=== PATIENT | female | born 1990 | race Caucasian/White ===

== ENCOUNTER 2016-06-03 20:19 | Emergency (ER) | payer OTHER ==
--- NOTE | 2016-06-03 21:43 | ED CLINICAL REPORT ---
Clinical Report - Physicians/Mid Levels [facility] [address] [place] [address] 06/03/2016 20:19 [id number] Time Seen: 21:08. Arrived- By private vehicle. Historian- patient. HISTORY OF PRESENT ILLNESS Chief Complaint: Breast lump. This started about 1 month ago and is still present. It has been constant. (patient noticed discomfort in her chest on the left side for the past month. She says it's worse when she takes deep breaths. She feels that it is within her beneath her left breast. When she wasevaluating that she noticed a lump in the lower part of her left breast that she says is slightly tender and she's come in and have this evaluated. She denies any change in the overlying skin of her breasts, no discharge from the nipple,.). REVIEW OF SYSTEMS No chills, fever, sweats, calf pain or cough. No difficulty breathing, pedal edema, palpitations, abdominal pain or constipation. No diarrhea, nausea, vomiting or urinary problems. All systems otherwise negative, except as recorded above. PAST HISTORY Problems: MRSA Infection. Abscess. Uterine Fibroid. Pelvic Pain. Additional Surgeries: Adenoidectomy. Fibroid tumors laparoscopy. Tonsillectomy. Medications: None. Allergies: No Known Drug Allergy. 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 FAMILY HISTORY Denies family medical history. ADDITIONAL NOTES The nursing notes have been reviewed. PHYSICAL EXAM Vital Signs: Have been reviewed. Appearance: Alert. Eyes: Pupils equal, round and reactive to light. ENT: Pharynx normal. Neck: Neck supple. CVS: Normal heart rate and rhythm. Heart sounds normal. Respiratory: No respiratory distress. Moderate left costochondral tenderness. The tenderness reproduces the patient's subjective complaint. Breath sounds normal. Left Breast: Single, medium, nodular, nontender, moveable mass present on exam. Localized at 6 o'clock. No axillary involvement, erythema present, warmth present or lymphangitis present. Normal nipple. No ecchymosis. No nipple discharge or areola abnormality. Breast Exam: a female mri supervisor was present. Abdomen: No visible injury. Soft and nontender. Bowel sounds normal. No organomegaly. No mass. Back: Normal inspection. Skin: Skin warm and dry. Normal skin color. Normal skin turgor. Extremities: Extremities exhibit normal ROM. No lower extremity edema. CLINICAL IMPRESSION Left breast mass. Costochondritis INSTRUCTIONS Warnings: Further evaluation is necessary. GENERAL WARNINGS: Return or contact your physician immediately if your condition worsens or changes unexpectedly, if not improving as expected, or if other problems arise. OTC Medications: Motrin (available over the counter): take according to label instructions. Follow-up: Follow up with your doctor in seven days. Understanding of the discharge instructions verbalized by patient. (Electronically signed by Jose J Morales MD 06/03/2016 22:47)
--- NOTE | 2016-06-03 21:43 | ED NURSING NOTES ---
Clinical Report - Nurses [facility] [address] [place] [address] 06/03/2016 20:19 Patient: XIMENA ALCOCER TRIAGE Triage time 20:36. Acuity: LEVEL 4. Chief Complaint: SWOLLEN NODE (Ximena states her L breast has been hurting for about 4 weeks. Tonight she noticed a lump underneath her breath. Paternal grandmother is in remission for breast cancer. She describes lump as painful. She states she experienced pain in her L breast 4 weeks ago while she was in shelter; she was also detoxing at the time so was not sure if it was part of detoxing or something else.). Alert. No acute distress. SEPSIS SCREEN: Sepsis Screen: negative. Negative (no infection suspected/documented). --20:45 Sanjay Shaw R.N. 20:36 06/03/16. BP: 155/108 (regular adult cuff) taken on the left arm, via an automated monitor, while sitting. HR: 116 (tachycardic). RR: 16 (regular, unlabored and normal). O2 saturation: 100% on room air. Temp: 98.5 F (oral). Pain level now: 410. --20:45 Sanjay Shaw R.N. Weight: 72.5 kg stated. Height/Length: 64 inches Per Patient. BMI: 27.5. --20:42 Sanjay Shaw R.N. Medications None. --20:41 Sanjay Shaw R.N. Medication/allergy information source: the patient. --20:45 Sanjay Shaw R.N. Allergies No Known Drug Allergy. --20:41 Sanjay Shaw R.N. History Arrived by private vehicle. Historian: patient. Accompanied by family. Primary physician ([facility]). This started just prior to arrival. Treatment C APPLICATION DEVELOPER: None. PAST MEDICAL HX: Last normal menstrual period- about 1.5 weeks ago. SOCIAL HX: Current every day light tobacco smoker (cigarette)- less than 1/2 a pack per day. History of drug use. Is a recovering addict. (about 4 weeks sober). No alcohol use. She has not traveled outside the [place] The patient was exposed to MRSA. ABUSE ASSESSMENT: Abuse assessment: The patient was asked "Do you feel safe in your home?" and "Has anyone hurt you or threatened to hurt you?". No report of abuse. SELF HARM ASSESSMENT: A self harm assessment was performed. The patient answered "no" to the question "Do you have thoughts of harming or killing yourself?" and "Have you recently had thoughts about harming or killing others?". FALL RISK ASSESSMENT: Fall risk assessment completed. No fall risk identified. NUTRITIONAL RISK ASSESSMENT: The nutritional risk assessment revealed no deficiencies. FUNCTIONAL ASSESSMENT: Functional assessment: no impairments noted. LEARNING NEEDS ASSESSMENT: The learning needs assessment revealed no barriers. SKIN INTEGRITY ASSESSMENT: Skin integrity risk assessment completed. No skin integrity risk identified. --20:45 Sanajy Shaw R.N. ADDITIONAL SURGERIES: Adenoidectomy. Fibroid tumors laparoscopy. Tonsillectomy. --20:41 Sanjay Shaw R.N. Assessment GENERAL / NEURO / PSYCH: Alert. Oriented X 4. Appears in no acute distress. Patient appears calm and cooperative. RESPIRATORY: Respirations not labored. SKIN: Skin is warm and dry. --20:45 Sanjay Shaw R.N. Interventions ID band on patient. To treatment room. Report given to the primary nurse. TJ Gage. No allergy band on patient. --20:45 Sanjay Shaw R.N. NURSING PROGRESS NOTES The initial plan of care for this patient has been created This plan of care was discussed with the patient. Patient gowned. Reassurance given to the patient. Two patient identifiers checked. Call light placed in reach. Side rails up x 1. Bed placed in lowest position. Brakes of bed on. Patient ready for evaluation- ED physician notified. --20:45 Sanjay Shaw R.N. 20:46 06/03/16. BP: 151/92 (regular adult cuff) taken on the left arm, via an automated monitor, while sitting. --20:47 DeElena, Sanjay, R.N. DISPOSITION / DISCHARGE Departure time: 2149. Condition at departure: improved. No learning barriers present. Discharge instructions provided and reviewed with the patient. Reviewed warnings. Reviewed medication(s). Treatments reviewed. Patient verbalized understanding. Written instructions provided in Croatian. The patient was discharged by the physician. She was discharged home and accompanied by family. She left the Emergency Department ambulatory and via private vehicle. Family member driving. --21:53 Too Ren R.N. 21:51 06/03/16. BP: 136/98. HR: 76. RR: 18. O2 saturation: 100%. Pain level now 0/10. --21:53 Too Ren R.N. Locked/Released at 06/05/2016 21:00 by Too Ren R.N.
--- NOTE | 2016-06-03 21:43 | ED NURSING NOTES ---
Clinical Report - Nurses [facility] [address] [place] [address] 06/03/2016 20:19 Patient: XIMENA ALCOCER TRIAGE Triage time 20:36. Acuity: LEVEL 4. Chief Complaint: SWOLLEN NODE (Ximena states her L breast has been hurting for about 4 weeks. Tonight she noticed a lump underneath her breath. Paternal grandmother is in remission for breast cancer. She describes lump as painful. She states she experienced pain in her L breast 4 weeks ago while she was in nursing home; she was also detoxing at the time so was not sure if it was part of detoxing or something else.). Alert. No acute distress. SEPSIS SCREEN: Sepsis Screen: negative. Negative (no infection suspected/documented). --20:45 Sanjay Shaw R.N. 20:36 06/03/16. BP: 155/108 (regular adult cuff) taken on the left arm, via an automated monitor, while sitting. HR: 116 (tachycardic). RR: 16 (regular, unlabored and normal). O2 saturation: 100% on room air. Temp: 98.5 F (oral). Pain level now: 410. --20:45 Sanjay Shaw R.N. Weight: 72.5 kg stated. Height/Length: 64 inches Per Patient. BMI: 27.5. --20:42 Sanjay Shaw R.N. Medications None. --20:41 Sanjay Shaw R.N. Medication/allergy information source: the patient. --20:45 Sanjay Shaw R.N. Allergies No Known Drug Allergy. --20:41 Sanjay Shaw R.N. History Arrived by private vehicle. Historian: patient. Accompanied by family. Primary physician ([facility]). This started just prior to arrival. Treatment CLINICAL TRIAL EDUCATOR: None. PAST MEDICAL HX: Last normal menstrual period- about 1.5 weeks ago. SOCIAL HX: Current every day light tobacco smoker (cigarette)- less than 1/2 a pack per day. History of drug use. Is a recovering addict. (about 4 weeks sober). No alcohol use. She has not traveled outside the [place] The patient was exposed to MRSA. ABUSE ASSESSMENT: Abuse assessment: The patient was asked "Do you feel safe in your home?" and "Has anyone hurt you or threatened to hurt you?". No report of abuse. SELF HARM ASSESSMENT: A self harm assessment was performed. The patient answered "no" to the question "Do you have thoughts of harming or killing yourself?" and "Have you recently had thoughts about harming or killing others?". FALL RISK ASSESSMENT: Fall risk assessment completed. No fall risk identified. NUTRITIONAL RISK ASSESSMENT: The nutritional risk assessment revealed no deficiencies. FUNCTIONAL ASSESSMENT: Functional assessment: no impairments noted. LEARNING NEEDS ASSESSMENT: The learning needs assessment revealed no barriers. SKIN INTEGRITY ASSESSMENT: Skin integrity risk assessment completed. No skin integrity risk identified. --20:45 Sanjay Shaw R.N. ADDITIONAL SURGERIES: Adenoidectomy. Fibroid tumors laparoscopy. Tonsillectomy. --20:41 Sanjay Shaw R.N. Assessment GENERAL / NEURO / PSYCH: Alert. Oriented X 4. Appears in no acute distress. Patient appears calm and cooperative. RESPIRATORY: Respirations not labored. SKIN: Skin is warm and dry. --20:45 Sanjay Shaw R.N. Interventions ID band on patient. To treatment room. Report given to the primary nurse. TJ Gage. No allergy band on patient. --20:45 Sanjay Shaw R.N. NURSING PROGRESS NOTES The initial plan of care for this patient has been created This plan of care was discussed with the patient. Patient gowned. Reassurance given to the patient. Two patient identifiers checked. Call light placed in reach. Side rails up x 1. Bed placed in lowest position. Brakes of bed on. Patient ready for evaluation- ED physician notified. --20:45 Sanjay Shaw R.N. 20:46 06/03/16. BP: 151/92 (regular adult cuff) taken on the left arm, via an automated monitor, while sitting. --20:47 DeElena, Sanjay, R.N. DISPOSITION / DISCHARGE Departure time: 2149. Condition at departure: improved. No learning barriers present. Discharge instructions provided and reviewed with the patient. Reviewed warnings. Reviewed medication(s). Treatments reviewed. Patient verbalized understanding. Written instructions provided in Greek. The patient was discharged by the physician. She was discharged home and accompanied by family. She left the Emergency Department ambulatory and via private vehicle. Family member driving. --21:53 Too Ren R.N. 21:51 06/03/16. BP: 136/98. HR: 76. RR: 18. O2 saturation: 100%. Pain level now 0/10. --21:53 Too Ren R.N. Locked/Released at 06/05/2016 21:00 by Too Ren R.N.
--- NOTE | 2016-06-03 21:43 | ED CLINICAL REPORT ---
Clinical Report - Physicians/Mid Levels [facility] [address] [place] [address] 06/03/2016 20:19 [id number] Time Seen: 21:08. Arrived- By private vehicle. Historian- patient. HISTORY OF PRESENT ILLNESS Chief Complaint: Breast lump. This started about 1 month ago and is still present. It has been constant. (patient noticed discomfort in her chest on the left side for the past month. She says it's worse when she takes deep breaths. She feels that it is within her beneath her left breast. When she wasevaluating that she noticed a lump in the lower part of her left breast that she says is slightly tender and she's come in and have this evaluated. She denies any change in the overlying skin of her breasts, no discharge from the nipple,.). REVIEW OF SYSTEMS No chills, fever, sweats, calf pain or cough. No difficulty breathing, pedal edema, palpitations, abdominal pain or constipation. No diarrhea, nausea, vomiting or urinary problems. All systems otherwise negative, except as recorded above. PAST HISTORY Problems: MRSA Infection. Abscess. Uterine Fibroid. Pelvic Pain. Additional Surgeries: Adenoidectomy. Fibroid tumors laparoscopy. Tonsillectomy. Medications: None. Allergies: No Known Drug Allergy. 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 FAMILY HISTORY Denies family medical history. ADDITIONAL NOTES The nursing notes have been reviewed. PHYSICAL EXAM Vital Signs: Have been reviewed. Appearance: Alert. Eyes: Pupils equal, round and reactive to light. ENT: Pharynx normal. Neck: Neck supple. CVS: Normal heart rate and rhythm. Heart sounds normal. Respiratory: No respiratory distress. Moderate left costochondral tenderness. The tenderness reproduces the patient's subjective complaint. Breath sounds normal. Left Breast: Single, medium, nodular, nontender, moveable mass present on exam. Localized at 6 o'clock. No axillary involvement, erythema present, warmth present or lymphangitis present. Normal nipple. No ecchymosis. No nipple discharge or areola abnormality. Breast Exam: a female patrol officer was present. Abdomen: No visible injury. Soft and nontender. Bowel sounds normal. No organomegaly. No mass. Back: Normal inspection. Skin: Skin warm and dry. Normal skin color. Normal skin turgor. Extremities: Extremities exhibit normal ROM. No lower extremity edema. CLINICAL IMPRESSION Left breast mass. Costochondritis INSTRUCTIONS Warnings: Further evaluation is necessary. GENERAL WARNINGS: Return or contact your physician immediately if your condition worsens or changes unexpectedly, if not improving as expected, or if other problems arise. OTC Medications: Motrin (available over the counter): take according to label instructions. Follow-up: Follow up with your doctor in seven days. Understanding of the discharge instructions verbalized by patient. (Electronically signed by Jose J Morales MD 06/03/2016 22:47)
--- NOTE | 2016-06-05 21:00 | ED MAR SUMMARY ---
..... Medication Administration Record [facility] [address], [place] [id number] Patient: XIMENA ALCOCER Visit ID: [id number] 26y, F Weight: 72.5 kg Height/Length: 64 in BMI: 27.5 ALLERGIES: No Known Drug Allergy
--- NOTE | 2016-06-05 21:00 | ED DISCHARGE INSTRUCTIONS ---
Patient: XIMENA ALCOCER General Instructions [facility] VisitID: [id number] [place] [address] 26y, F Registration Date/Time: 06/03/2016 Left breast mass. Costochondritis INSTRUCTIONS Warnings: Further evaluation is necessary. GENERAL WARNINGS: Return or contact your physician immediately if your condition worsens or changes unexpectedly, if not improving as expected, or if other problems arise. OTC Medications: Motrin (available over the counter): take according to label instructions. Follow-up: Follow up with your doctor in seven days. Understanding of the discharge instructions verbalized by patient. ADDITIONAL INFORMATION Breast Lump A lump was found in your breast today. Most breast lumps are not cancer. They represent normal changes in the breast tissue due to hormone variations. Some women may form lumps that are painful and tender; other lumps are painless. A common cause for a benign breast lump is Fibrocystic Breast Disease. In this condition, small cysts form and increase then decrease in size with your menstrual cycle. It is not possible to be certain of the cause of your lump without further evaluation. This could include another exam by your doctor or a heavy equipment supervisor, a mammogram, an ultrasound or possibly a biopsy. Home Care: If you are having breast pain, wear a well-fitted bra or sports bra for extra support. If you have breast pain at night, try wearing the bra during sleep. Applying a warm compress (towel soaked in warm water) may give temporary pain relief. Keep a log of whether the lump seems to be changing in size or tenderness with your period. This can help your doctor make the correct diagnosis. If your doctor suspects you have fibrocystic breast disease, try the following for the next three months: Reduce caffeine intake. Many women find that this helps. Caffeine is found in coffee, sodas, teas and chocolates. Take Vitamin E capsules (not more than 600mg per day). Follow Up with your doctor or as advised by our staff. Try to schedule the appointment for another breast exam 7-10 days after the start of your next period. Get Prompt Medical Attention if any of the following occur: Discharge from your nipple Redness or swelling of the breast Visible changes in the skin of the nipple or breast Chest Wall Pain: Costochondritis The chest pain that you have had today is caused by Costochondritis. This condition is due to an inflammation of the cartilage joining the ribs to the breastbone. It is not caused by heart or lung problems. Although the exact cause for costochondritis is not known, it often occurs during times of emotional stress. It can be painful, but it is not dangerous. It usually disappears within one to two weeks, but may recur. Rarely, a more serious condition may cause symptoms similar to costochondritis; therefore, watch for the warning signs listed below. Home Care: If you feel that emotional stress is a cause of your condition, try to identify sources of that stress. It may not be obvious! Learn ways to deal with the stress in your life such as regular exercise, muscle relaxation, meditation, or simply taking time out for yourself. For more information about this, consult your doctor or go to a local bookstore and review books and tapes available on the subject of stress reduction. You may use acetaminophen (Tylenol) or ibuprofen (Motrin, Advil) to control pain, unless another pain medicine was prescribed. [ NOTE: If you have liver disease or ever had a stomach ulcer, talk with your doctor before using these medicines.] The use of heat (hot wet compress or heating pad) with or without local analgesic creams (Deep Heat Rub, Jian Brennan) will be helpful to reduce pain. Follow Up with your doctor as directed or sooner if you do not start to improve within the next two days. Get Prompt Medical Attention if any of the following occur: A change in the type of pain: if it feels different, becomes more severe, lasts longer, or spreads into your shoulder, arm, neck, jaw or back Shortness of breath or increased pain with breathing Weakness, dizziness, or fainting Cough with dark colored sputum (phlegm) or blood Abdominal pain Dark red or black stools Fever of 100.4F (38C) or higher, or as directed by your healthcare provider Ibuprofen Oral tablet What is this medicine? IBUPROFEN (eye BYOO proe fen) is a non-steroidal anti-inflammatory drug (NSAID). It is used for dental pain, fever, headaches or migraines, osteoarthritis, rheumatoid arthritis, or painful monthly periods. It can also relieve minor aches and pains caused by a cold, flu, or sore throat. How should I use this medicine? Take this medicine by mouth with a glass of water. Follow the directions on the prescription label. Take this medicine with food if your stomach gets upset. Try to not lie down for at least 10 minutes after you take the medicine. Take your medicine at regular intervals. Do not take your medicine more often than directed. A special MedGuide will be given to you by the pharmacist with each prescription and refill. Be sure to read this information carefully each time. Talk to your pattern shop supervisor regarding the use of this medicine in children. Special care may be needed. What side effects may I notice from receiving this medicine? Side effects that you should report to your doctor or health emergency care attendant as soon as possible: allergic reactions like skin rash, itching or hives, swelling of the face, lips, or tongue black or bloody stools, blood in the urine or in vomit breathing problems changes in vision chest pain general ill feeling or flu-like symptoms nausea or vomiting redness, blistering, peeling or loosening of the skin, including inside the mouth slurred speech or weakness on one side of the body stomach pain unexplained weight gain or swelling unusually weak or tired yellowing of eyes or skin Side effects that usually do not require medical attention (report to your doctor or health emergency care attendant if they continue or are bothersome): constipation or diarrhea dizziness gas or heartburn stomach upset What may interact with this medicine? Do not take this medicine with any of the following medications: cidofovir ketorolac methotrexate pemetrexed This medicine may also interact with the following medications: alcohol aspirin diuretics lithium other drugs for inflammation like prednisone warfarin What if I miss a dose? If you miss a dose, take it as soon as you can. If it is almost time for your next dose, take only that dose. Do not take double or extra doses. Where should I keep my medicine? Keep out of the reach of children. Store at room temperature between 15 and 30 degrees C (59 and 86 degrees F). Keep container tightly closed. Throw away any unused medicine after the expiration date. What should I tell my health care provider before I take this medicine? They need to know if you have any of these conditions: asthma cigarette smoker drink more than 3 alcohol containing drinks a day heart disease or circulation problems such as heart failure or leg edema (fluid retention) high blood pressure kidney disease liver disease stomach bleeding or ulcers an unusual or allergic reaction to ibuprofen, aspirin, other NSAIDS, other medicines, foods, dyes, or preservatives or trying to get breast-feeding What should I watch for while using this medicine? Tell your doctor or healthcare professional if your symptoms do not start to get better or if they get worse. This medicine does not prevent heart attack or stroke. In fact, this medicine may increase the chance of a heart attack or stroke. The chance may increase with longer use of this medicine and in people who have heart disease. If you take aspirin to prevent heart attack or stroke, talk with your doctor or health emergency care attendant. Do not take other medicines that contain aspirin, ibuprofen, or naproxen with this medicine. Side effects such as stomach upset, nausea, or ulcers may be more likely to occur. Many medicines available without a prescription should not be taken with this medicine. This medicine can cause ulcers and bleeding in the stomach and intestines at any time during treatment. Ulcers and bleeding can happen without warning symptoms and can cause . To reduce your risk, do not smoke cigarettes or drink alcohol while you are taking this medicine. You may get drowsy or dizzy. Do not drive, use machinery, or do anything that needs mental alertness until you know how this medicine affects you. Do not stand or sit up quickly, especially if you are an older patient. This reduces the risk of dizzy or fainting spells. This medicine can cause you to bleed more easily. Try to avoid damage to your teeth and gums when you brush or floss your teeth. You have been given the following additional information: Breast Mass, Uncertain Cause Chest Wall Pain, Costochondritis Ibuprofen Oral tablet (Electronically signed by Jose J Morales MD 06/03/2016 22:47)
--- NOTE | 2016-06-05 21:00 | ED MAR SUMMARY ---
..... Medication Administration Record [facility] [address] [place], [place] [id number] Patient: IXMENA ALCOCER Visit ID: [id number] 26y, F Weight: 72.5 kg Height/Length: 64 in BMI: 27.5 ALLERGIES: No Known Drug Allergy
--- NOTE | 2016-06-05 21:00 | ED MED RECONCILIATION SUMMARY ---
Patient: XIMENA ALCOCER Medication Reconciliation Report [facility] VisitID: [id number] [address] [place] [address] 26y, F Registration Date/Time: 06/03/2016 Weight: 72.5 kg Height/Length: 64 in. BMI: 27.5 ALLERGIES: No Known Drug Allergy The patient's Home Medications are listed below: NONE. The source(s) of the original Home Medication information: patient The following Medications were given to the patient in the Emergency Department: None. The following Medications were prescribed to the patient: Motrin (available over the counter): take according to label instructions. -- Jose J Morales MD
--- NOTE | 2016-06-05 21:00 | ED MED RECONCILIATION SUMMARY ---
Patient: XIMENA ALCOCER Medication Reconciliation Report [facility] VisitID: [id number] [address] [place] [address] 26y, F Registration Date/Time: 06/03/2016 Weight: 72.5 kg Height/Length: 64 in. BMI: 27.5 ALLERGIES: No Known Drug Allergy The patient's Home Medications are listed below: NONE. The source(s) of the original Home Medication information: patient The following Medications were given to the patient in the Emergency Department: None. The following Medications were prescribed to the patient: Motrin (available over the counter): take according to label instructions. -- Jose J Morales MD
== END 2016-06-03 21:54 | disposition home or self-care (01) ==
LOC: ED SRH 20:19
DX: M94.0 Chondrocostal junction syndrome [Tietze] (principal); N63 Unspecified lump in breast